=== PATIENT | female | born 2000 | race Hispanic/Latino ===

== ENCOUNTER 2022-09-12 08:15 | Emergency (ER) | payer MEDICAID, SELFPAY ==
[2022-09-12] MEDS ORDERED: Lorazepam 0.5 MG TAB ONE (09:37)
[2022-09-12 10:37] LABS: Bilirubin Negative (Negative); Blood, Urine Trace (Negative); CK (CPK) 169 U/L (29-168); CRP (Inflammatory) Less than 0.50 mg/dL (= or < 0.5); Clarity Clear (Clear); Glucose, Urine (Dipstick) Negative (Negative); Ketone, Urine Negative (Negative); Leukocyte Trace (Negative); Magnesium 2.3 mg/dL (1.6-2.6); Nitrite Negative (Negative); Protein, Urine (Dipstick) Negative (Neg-Trace); pH, Urine 7.5 (5.0-9.0)
[2022-09-12 10:39] LABS: ALT (SGPT) 187 U/L (8-55); AST (SGOT) 129 U/L (5-34); Albumin 4.9 g/dL (3.5-5.0); Alkaline Phosphatase 50 U/L (40-110); Anion Gap 15 mmol/L (10-20); BUN (Urea Nitrogen) 6 mg/dL (7.0-18.7); Bacteria/HPF Rare-Few HPF (None Seen); Bilirubin, Total 1.7 mg/dL (0.2-1.2); Calc. Creatinine Clearance 0 mL/min (70-130); Calcium 9.9 mg/dL (7.8-10.44); Carbon Dioxide 25 mmol/L (22-29); Chloride 104 mmol/L (98-107); Estimated GFR 110; Glucose 123 mg/dL (70-105); Potassium 3.6 mmol/L (3.5-5.1); Protein, Total 7.9 g/dL (6.0-8.3); RBC/HPF 0-3 HPF (0-3); Sodium 140 mmol/L (136-145); Squamous Epithelial 0-3 HPF (0-3); WBC/HPF 0-3 HPF (0-3)
[2022-09-12 10:55] LABS: #Basophils 0.1 thou/uL (0.0-0.2); #Eosinphils 0.1 thou/uL (0.0-0.7); #Lymphocytes 2.5 thou/uL (1.20-3.40); #Monocytes 0.5 thou/uL (0.11-0.59); #Neutrophils 5.4 thou/uL (1.40-6.50); %Basophils 1.1 % (0.0-1.0); %Eosinophils 1.3 % (0.0-10.0); %Lymphocytes 28.7 % (21.0-51.0); %Monocytes 5.7 % (0.0-10.0); %Neutrophils 63.2 % (42.0-75.0); Hemoglobin 15.7 g/dL (12.0-16.0); Mean Corpuscular HGB CONC 34.5 g/dL (32.0-36.0); Mean Corpuscular Hemoglobin 32.2 pg (27.0-31.0); Mean Corpuscular Volume 93.4 fl (78.0-98.0); Mean Platelet Volume 6.7 fL (7.4-10.4); Platelet Count 325 10x3/uL (130-400); Red Blood Cell (RBC) Count 4.86 mill/uL (4.20-5.40); White Blood Cell (WBC) Count 8.6 10x3/uL (4.8-10.8)
== END 2022-09-12 11:25 | disposition home or self-care (01) ==
LOC: NAV ERS 08:15
DX: E11.65 Type 2 diabetes mellitus with hyperglycemia (principal); E11.40 Type 2 diabetes mellitus with diabetic neuropathy, unspecified; F41.9 Anxiety disorder, unspecified
CPT/HCPCS: 80053; 81003; 81015; 82550; 83605; 83735; 85025; 86140; 99284